=== PATIENT | male | born 1990 | race African-American/Black ===

== ENCOUNTER 2017-06-18 20:23 | Inpatient (IN) | payer OTHER ==
[~2017-06-18] VITALS: Ht 182.9 cm; Wt 79.1 kg
[2017-06-18 20:36] VITALS: Ht 182.9 cm; Wt 79.1 kg
[2017-06-18] MEDS ORDERED: SOD CHLORIDE 0.9% 1,000 ML IV ONE (21:00)
[2017-06-18 21:28] LABS: ABNORMAL IP MESSAGE 1; BASOPHIL # 0.1 10^3/ul (0.0-0.1); BASOPHILS % 0.8 % (0.0-2.0); EOSINOPHILS # 0.8 10^3/ul (0.0-0.5); EOSINOPHILS % 4.5 % (0.0-7.0); HEMATOCRIT 29.7 % (42.0-52.0); HEMOGLOBIN 10.1 g/dl (14.0-18.0); LYMPHOCYTES # 4.7 10^3/ul (0.8-2.9); LYMPHOCYTES % 26.9 % (15.0-51.0); MEAN CORPUSCULAR HEMOGLOBIN 28.4 pg (29.0-33.0); MEAN CORPUSCULAR VOLUME 83.4 fl (82.0-101.0); MEAN PLATELET VOLUME 9.2 fl (7.4-10.4); MONOCYTE # 1.8 10^3/ul (0.3-0.9); MONOCYTES % 10.5 % (0.0-11.0); NEUTROPHIL # 9.8 10^3/ul (1.6-7.5); NEUTROPHILS % 56.6 % (39.0-77.0); NUCLEATED RED BLOOD CELLS # 0.1 10^3/ul (0.0-0.0); NUCLEATED RED BLOOD CELLS% 0.8 /100WBC (0.0-0.0); PLATELET COUNT 409 10^3/UL (140-415); POSITIVE DIFF @See below; RED BLOOD COUNT 3.56 10^6/ul (4.70-6.10); RED CELL DISTRIBUTION WIDTH 21.2 % (11.5-14.5); RETICULOCYTE COUNT % 12.7 % (0.5-1.5); WHITE BLOOD COUNT 17.4 10^3/ul (4.8-10.8)
[2017-06-18] MEDS ORDERED: morphine 4 MG/ML VIAL IV STA (21:38)
[2017-06-18] MEDS ORDERED: FENTAnyl 50 MCG/ML VIAL IV ONE ×2 (22:30)
--- NOTE | 2017-06-18 23:05 | RADRPT ---
PROCEDURE: XR Chest AP portable CLINICAL INDICATION: Chest pain TECHNIQUE: An AP portable radiograph of the chest was submitted. COMPARISON: None. FINDINGS: Support Hardware: None Cardiovascular: There is moderate lobular enlargement of the cardiomediastinal silhouette and the pu lmonary vasculature appears congested. Lung Blue: The lung blue appear clear with no nodule, alveolar infiltrate, or interstitial promi nence evident. Pleural Spaces: No pneumothorax or pleural effusion is identified. Osseous Structures: The osseous structures appear intact. Soft Tissues: The soft tissues appear unremarkable. IMPRESSION: 1. Moderate globular enlargement the cardiomediastinal silhouette which can be seen in cardiomyopat hy or with pericardial effusion. 2. Pulmonary vascular congestion. 3. The lung blue and pleural spaces are clear. Physician Maribel Date Time Electronically viewed and signed by Dolly Smith Physician on 06/18/2017 23:05 /
[2017-06-19] VITALS (10 sets, daily range): BP systolic 125–148; BP diastolic 69–91; PULSE 70–92; RESP 16–20
[2017-06-19] MEDS ORDERED: ACETAMINOPHEN 325 MG TAB PO PRN (01:00)
[2017-06-19] MEDS ORDERED: ONDANSETRON 4 MG INJ IV PRN ×2 (01:00→02:00)
[2017-06-19] MEDS ORDERED: FENTAnyl 50 MCG/ML VIAL IV ONE (01:00)
--- NOTE | 2017-06-19 01:48 | ERD ---
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 He is new in town from [place] and has not been seen in any hospitals around here. Said 2 months ago was his last attack. Denies abdominal pain nausea and vomiting. Denies fever chills. ROS All systems reviewed and are negative except as per history of present illness. Allergies Allergies: Coded Allergies: No Known Allergy (Unverified , 06/18/17) PMhx/Soc Hx Miscellaneous Medical Probl: Yes (sickle cell) Hx Alcohol Use: No Hx Substance Use: No Hx Tobacco Use: No Smoking Status: Never smoker Physical Exam Vitals Vital Signs Date Time Temp Pulse Resp B/P Pulse Ox O2 Delivery O2 Flow Rate FiO2 06/18/17 22:53 78 18 145/78 97 Room Air 06/18/17 20:36 98.2 80 18 138/61 94 Physical Exam Const: [] L distress, appears uncomfortable Head: Atraumatic Eyes: Normal Conjunctiva ENT: Normal External Ears, Nose and Mouth. Neck: Full range of motion..~ No meningismus. Resp: Clear to auscultation bilaterally Cardio: Regular rate and rhythm, no murmurs Abd: Soft, non tender, non distended. Normal bowel sounds Skin: No petechiae or rashes Back: No midline or flank tenderness Ext: No cyanosis, or edema Neur: Awake and alert oriented 3, no focal deficits Psych: Very agitated. Result Diagram: 06/18/172109 Results 24 hrs Laboratory Tests Test 06/18/17 21:10 White Blood Count 17.410^3/ul Red Blood Count 3.5610^6/ul Hemoglobin 10.1g/dl Hematocrit 29.7% Mean Corpuscular Volume 83.4fl Mean Corpuscular Hemoglobin 28.4pg Mean Corpuscular Hemoglobin Concent 34.0g/dl Red Cell Distribution Width 21.2% Platelet Count 97518^3/UL Mean Platelet Volume 9.2fl Neutrophils % 56.6% Lymphocytes % 26.9% Monocytes % 10.5% Eosinophils % 4.5% Basophils % 0.8% Nucleated Red Blood Cells % 0.8/100WBC Neutrophils # 9.810^3/ul Lymphocytes # 4.710^3/ul Monocytes # 1.810^3/ul Eosinophils # 0.810^3/ul Basophils # 0.110^3/ul Nucleated Red Blood Cells # 0.110^3/ul Absolute Reticulocyte Count 0.450X10^6 Percent Reticulocyte Count 12.7% Current Medications Medications (Trade) Dose Ordered Sig/Kris Route PRN Reason Start Time Stop Time Status Last Admin Dose Admin Sodium Chloride (NS) 1,000 ml @ 1,000 mls/hr Q1H ONCE IV 06/18/17 21:00 06/18/17 21:59 DC 06/18/17 21:11 Morphine Sulfate (morphine) 4 mg ONCE STAT IV 06/18/17 21:38 06/18/17 21:40 DC 06/18/17 21:43 Fentanyl (Sublimaze) 50 mcg ONCE ONCE IV 06/18/17 22:30 06/18/17 22:31 DC 06/18/17 22:34 Fentanyl (Sublimaze) 50 mcg ONCE ONCE IV 06/18/17 22:30 06/18/17 22:31 DC 06/18/17 23:20 Procedures/MDM 26-year-old male with sickle cell pain. Does have an elevated white blood cell count no signs of aplastic crisis with an excellent reticulocyte count of 12. Does have some anemia sickle cell disease but does not have any severe anemia that would need a transfusion. He was given 2 L of normal saline 4 mg of morphine 200 mg of fentanyl and 4 different doses. Patient was a very difficult patient pulled out his IV twice was swearing and threatening the staff. Security was called on the patient. Is going to be admitted to the medical surgical floor for further management by Dr. Ford. Chest x-ray interpretation: Engorgement of the pulmonary vasculature, I see no other acute process, no pulmonary edema, pneumothorax, no infiltrates, no fractures. Departure Diagnosis: Primary Impression: Sickle cell anemia with pain Additional Impression: Leukocytosis Condition: Stable YELITZA TOSCANO DO Jun 19, 2017 01:48
[2017-06-19] MEDS ORDERED: NACL 0.9% 3 ML SYG IV SCH (02:00)
[2017-06-19] MEDS ORDERED: morphine 4 MG/ML VIAL IV PRN (02:00)
[2017-06-19] MEDS ORDERED: morphine 2 MG INJ IV PRN (02:00)
[2017-06-19 02:49] LABS: ALANINE AMINOTRANSFERASE 36 IU/L (13-69); ALBUMIN 4.4 g/dl (3.3-4.9); ALBUMIN/GLOBULIN RATIO 1.46; ALKALINE PHOSPHATASE 123 IU/L (42-121); ANION GAP 16 (8-16); ASPARTATE AMINO TRANSFERASE 34 IU/L (15-46); BLOOD UREA NITROGEN 12 mg/dl (7-20); CALCIUM 9.4 mg/dl (8.4-10.2); CARBON DIOXIDE 25 mmol/L (21-31); CHLORIDE 108 mmol/L (97-110); CREATINE KINASE 211 IU/L (23-200); CREATININE 0.75 mg/dl (0.61-1.24); GLUCOSE 109 mg/dl (70-220); MAGNESIUM 1.8 mg/dl (1.7-2.5); POTASSIUM 4.1 mmol/L (3.5-5.1); SODIUM 145 mmol/L (135-144); TOTAL PROTEIN 7.4 g/dl (6.1-8.1)
[2017-06-19 03:03] LABS: CK-MB 1.03 ng/ml (0.0-2.4); TROPONIN-I < 0.012 ng/ml (0.00-0.12)
[2017-06-19 03:10] LABS: BILIRUBIN,INDIRECT 4.5 mg/dl (0-1.1); BILIRUBIN,TOTAL 4.5 mg/dl (0.2-1.3); LACTATE DEHYDROGENASE 669 IU/L (313-618)
[2017-06-19] MEDS ORDERED: HYDROmorphONE 0.5 MG/0.5 ML SYG IV STA (03:46)
[2017-06-19] MEDS ORDERED: HYDROXYUREA 500 MG CAP PO SCH (04:30)
[2017-06-19] MEDS ORDERED: IOHEXOL 100 ML ONE (05:06)
[2017-06-19] MEDS ORDERED: SOD CHLORIDE 0.9% 100 ML ONE (05:06)
--- NOTE | 2017-06-19 05:30 | RADRPT ---
PROCEDURE: CTA Chest with contrast. CLINICAL INDICATION: Chest pain. Suspected pulmonary embolus. Sickle cell disease. TECHNIQUE: Thin section spiral CT images were obtained through the vasculature of the chest during administration of 85 ccs of Omnipaque 350 contrast material. Coronal and sagittal reformatted imag es were obtained from the axial source images. 3D maximum intensity reconstructed were performed. I mages were reviewed on a high-resolution PACS workstation. The total exam CTDI was 7.98 mGy and the total exam DLP was 358.52 mGy-cm. One or more of the following dose reduction techniques were used: automated exposure control, adjustment of the mA and/or kV according to patient size, or use of iter ative reconstruction technique. DICOM images are available. COMPARISON: Chest x-ray from the same day FINDINGS: Lungs: Slight dependent atalectasis of the lungs is seen.. Nonspecific ground-glass opacity of the l ungs is seen with a lower lobe predominance. Scattered areas of peripheral and dependent atelectasis but no definite focal infiltrate or definite focal infarct.. No pleural or pericardial effusion is seen. Mediastinum: No mass or adenopathy is seen. The heart is markedly enlarged. The proximal ascending aorta measures 4 cm in diameter.. No definite pulmonary embolus or aortic dissection.. Musculoskeletal: Slightly heterogeneous marrow with perhaps minimal early endplate depressions of th e spine. Bilateral humeral head AVN.. Upper abdomen: The spleen is poorly seen and may be tiny in size, perhaps due to auto infarction. Th e left kidney is ptotic. Low attenuation laterally could be due to renal infarct of the left kidney is incompletely seen on the study of the chest.. IMPRESSION: No definite pulmonary embolus or aortic dissection. Marked cardiomegaly and ectatic ascending aorta. Nonspecific ground-glass opacity of the lungs. Poorly visualized and likely a very small spleen, perhaps due to auto infarction. Possible left lisandra l infarct versus unusual appearance due to ptosis. Bilateral humeral head AVN and probable early sic kle cell changes of the spine. RPTAT: HLBE Physician Abbey Date Time Electronically viewed and signed by Physician Abbey on 06/19/2017 05:30 LE/
[2017-06-19] MEDS: SOD CHLORIDE 0.9% 1,000 ML IV SCH ×3 (05:50→12:11)
[2017-06-19] MEDS: HYDROmorphONE 1 MG/ML SYG IV PRN ×2 (06:36→10:09)
--- NOTE | 2017-06-19 07:09 | HP ---
Date/Time of Note Date/Time of Note DATE: 06/19/17 TIME: 06:58 Assessment/Plan VTE Prophylaxis VTE Prophylaxis Intervention: LMWH Lines/Catheters IV [facility]ter [facility]from [facility]): Saline Lock Assessment/Plan Chief Complaint/Hosp Course This is a 26-year-old male being admitted to the telemetry floor for: #1 chest pain: ACS versus acute chest syndrome versus sickle cell crisis: At the current time I do not feel he is in acute chest syndrome as patient is afebrile and he does not meet criteria for acute chest syndrome. His x-ray does appear to show vascular congestion and an enlarged heart however on physical exam I do not hear any wheezing. He does not look like he is overloaded at this time. Nonetheless I would like to further evaluate his heart I will order a CTA of the chest as well as an echocardiogram. We will currently monitor him in telemetry. Trend cardiac troponins. He did receive morphine in the ED but it did not give him any pain relief. Will provide him Dilaudid at this time. #2 sickle cell crisis: At the current time his hemoglobin is 10 patient states that his baseline hemoglobin is around 9-10. We will continue to monitor hemoglobin. We will provide him IV fluid hydration with normal saline while monitoring his respiratory status as patient apparently was shown to have vascular congestion on his x-ray though on exam I do not hear any wheezing on exam and he is not in respiratory distress. We will also provide him Dilaudid IV 1 mg every 4 hours. Zofran as needed for nausea. Will also consider initiating hydroxyurea. Patient does not have a primary care doctor, I will defer consultation to hematology to the day team. Patient does have an elevated white blood cell count which likely could be reactive I am unsure of his splenic status at this time, I will give him initial dose of Zosyn while obtaining blood cultures beforehand though the patient is currently afebrile. #3 DVT and GI prophylaxis: Lovenox, no GI prophylaxis indicated Further treatment strategy will be implemented as per the clinical course Problems: HPI/ROS Admit Date/Time Admit Date/Time Jun 19, 2017 at 00:42 Hx of Present Illness Chief complaint: Left leg pain Is a 26-year-old male who comes in today complaining of left leg pain as well as chest pain he states is related to sickle cell disease. At the current time he denies any shortness of breath or wheezing. He denies any fevers. He states that his episode started approximately a 1 PM on 06/18. He reports that he is originally from [place] and he moved to the [facility] approximately a year and a half ago. He states the last time he was treated for sickle cell crisis with that hospital in [place]. He denies any lower extremity edema. Allergies: NKDA Medications: None ROS Const: As per HPI Eyes : No pain discharge or redness or change in visual acuity ENT: No pain, sore throat, congestion, congestion, dysphagia or discharge Respiratory: As per HPI Cardiovascular: As per HPI GI : no change in appetite, abdominal pain, nausea, vomiting, diarrhea, constipation, or change in the color his stool Genitourinary: No dysuria, hematuria, flank pain , discharge or CVA tenderness Musculoskeletal: As per HPI Skin: No rash, bruising or hives Neuro: No headache, dizziness, syncope, seizure, focal weakness Endocrine: No polyuria, polydipsia, temperature intolerance Psych: No hallucination, depression, anxiety or suicidal ideation PMH/Family/Social Past Medical History Sickle cell disease Past Surgical History Past Surgical Hx: no surgical history Family History Significant Family History: no pertinent family hx Social History Alcohol Use: none Smoking Status: Current some day smoker Drug Use: none Exam/Review of Systems Vital Signs Vitals Vital Signs Date Time Temp Pulse Resp B/P Pulse Ox O2 Delivery O2 Flow Rate FiO2 06/18/17 22:53 78 18 145/78 97 Room Air 06/18/17 20:36 98.2 Exam Exam General: Patient is lying in bed in moderate distress from his pain, he states his pain is worse in his left leg. HEENT: Atraumatic, normocephalic. The pupils are equal, round and reactive. Extraocular motor are intact Neck: Supple with full range of motion. No rigidity or meningismus Chest: Nontender Lungs: Clear to auscultation bilaterally no crackles rales or wheezing Heart: Normal S1-S2, Regular rhythm and rate. No murmur, S3, or S4 Abdomen: Soft , nontender, nondistended , bowel sounds are present. No guarding no rebound tenderness , No masses or organomegaly. No costovertebral temporal angle mass Extremities: Normal to inspection, no edema no cyanosis Neurologic: Normal mental status, speech normal, cranial nerves II through XII are intact, motor and sensory are intact, no focal weakness Additional Comments PROCEDURE: XR Chest AP portable CLINICAL INDICATION: Chest pain TECHNIQUE: An AP portable radiograph of the chest was submitted. COMPARISON: None. FINDINGS: Support Hardware: None Cardiovascular: There is moderate lobular enlargement of the cardiomediastinal silhouette and the pulmonary vasculature appears congested. Lung Hill: The lung hill appear clear with no nodule, alveolar infiltrate, or interstitial prominence evident. Pleural Spaces: No pneumothorax or pleural effusion is identified. Osseous Structures: The osseous structures appear intact. Soft Tissues: The soft tissues appear unremarkable. IMPRESSION: 1. Moderate globular enlargement the cardiomediastinal silhouette which can be seen in cardiomyopathy or with pericardial effusion. 2. Pulmonary vascular congestion. 3. The lung hill and pleural spaces are clear. Physician Maribel Date Time Electronically viewed and signed by Dolly Smith Physician on 06/18/2017 23:05 RH/ CC: YELITZA TOSCANO DO Labs Result Diagram: 06/18/170 06/19/17 0221 Medications Medications Current Medications Ondansetron HCl (Zofran Inj) 4 mg Q6H PRN IV NAUSEA AND/OR VOMITING; Start at 02:00 Acetaminophen (Tylenol Tab) 650 mg Q6H PRN PO PAIN LEVEL 1-3 OR FEVER; Start 06/19/17 at 02:00 Enoxaparin Sodium (Lovenox) 40 mg DAILY SC ; Start 06/19/17 at 09:00 Hydromorphone HCl 1 mg 1 mg Q4H PRN IV PAIN Last administered on 06/19/17 06: 36; Admin Dose 1 MG; Start 06/19/17 at 05:00 Sodium Chloride (NS) 1,000 ml @ 100 mls/hr Q10H IV Last administered on 05:50; Admin Dose 100 MLS/HR; Start 06/19/17 at 05:00 NICOLETTE GREEN Jun 19, 2017 07:09
[2017-06-19] MEDS ORDERED: PIPER-TAZO 3.375 GM IV (PMX) 50 ML IV ONE (07:30)
[2017-06-19] MEDS: ENOXAPARIN 40 MG/0.4 ML SYG SC SCH ×2 (09:00→09:35)
[2017-06-19] MEDS: HYDROmorphONE 2 MG TAB PO PRN ×2 (13:25→21:09)
[2017-06-19 14:58] LABS: ABNORMAL IP MESSAGE 1; BASOPHIL # 0.1 10^3/ul (0.0-0.1); BASOPHILS % 0.5 % (0.0-2.0); EOSINOPHILS # 0.4 10^3/ul (0.0-0.5); EOSINOPHILS % 2.4 % (0.0-7.0); HEMATOCRIT 29.1 % (42.0-52.0); HEMOGLOBIN 10.2 g/dl (14.0-18.0); LYMPHOCYTES # 2.3 10^3/ul (0.8-2.9); LYMPHOCYTES % 14.1 % (15.0-51.0); MEAN CORPUSCULAR HGB CONC 35.1 g/dl (32.0-37.0); MEAN CORPUSCULAR VOLUME 82.7 fl (82.0-101.0); MEAN PLATELET VOLUME 9.9 fl (7.4-10.4); MONOCYTE # 2.3 10^3/ul (0.3-0.9); MONOCYTES % 14.3 % (0.0-11.0); NEUTROPHIL # 11.2 10^3/ul (1.6-7.5); NEUTROPHILS % 68.2 % (39.0-77.0); NUCLEATED RED BLOOD CELLS # 0.1 10^3/ul (0.0-0.0); NUCLEATED RED BLOOD CELLS% 0.9 /100WBC (0.0-0.0); PLATELET COUNT 429 10^3/UL (140-415); POSITIVE DIFF @See below; RED BLOOD COUNT 3.52 10^6/ul (4.70-6.10); RED CELL DISTRIBUTION WIDTH 21.7 % (11.5-14.5); WHITE BLOOD COUNT 16.4 10^3/ul (4.8-10.8)
[2017-06-19 15:16] LABS: CREATINE KINASE 198 IU/L (23-200)
[2017-06-19 15:17] LABS: CHOL/HDL RATIO 1.6 RATIO
[2017-06-19 15:33] LABS: CK-MB 0.67 ng/ml (0.0-2.4); TROPONIN-I < 0.012 ng/ml (0.00-0.12)
--- NOTE | 2017-06-19 15:44 | RADRPT ---
PROCEDURE: US Lower extremity Venous. CLINICAL INDICATION: Bilateral leg swelling TECHNIQUE: Multiple sonographic images of the bilateral lower extremity deep venous system was obt ained utilizing diaz scale, color-flow, compressive sonography and doppler imaging with augmentation . COMPARISON: None. FINDINGS: There is normal compressibility, phasicity and Doppler flow within the bilateral common femoral, fem oral and popliteal veins. Visualized portions of the calf veins are patent. IMPRESSION: No sonographic evidence for deep venous thrombosis. RPTAT:AAJJ Keturah Guzman Physician Date Time Electronically viewed and signed by Keturah Guzman Physician on 06/19/2017 15:44 /
[2017-06-19] MEDS ORDERED: HYDROmorphONE 2 MG TAB PO ONE (16:30)
[2017-06-19] MEDS ORDERED: HYDROmorphONE 2 MG/ML SYG IV STA (17:39)
--- NOTE | 2017-06-19 19:51 | PN ---
Date/Time of Note Date/Time of Note DATE: 06/19/17 TIME: 19:48 Assessment/Plan VTE Prophylaxis VTE Prophylaxis Intervention: LMWH Lines/Catheters IV Catheter Type (from Nrsg): Saline Lock Assessment/Plan Chief Complaint/Hosp Course 26 yo male w sickle cell disease presenting with cough and leg pain - Will perfomr duplex US to exclude DVT given complaint and SCD - Continue symptomatic pain control - Would stop empiric abx tomorrow if no evidence of infection given low suspicion - IV fluids - Needs to establish care with a director revenue for SCD - Dr Rivera to see patient tomorrow, he has been notifed to assist with opiates Problems: Subjective 24 Hr Interval Summary Free Text/Dictation Patient complained of pain in his L calf this AM to me. Was very calm at that time. But quite a distant affect, silghtly hostile but calm. When I mentioned pain meds, he became very bright and friendly to me Continued on PO pain meds only. Then cheng beltre called for extreme agitation, very angry demanding IV pain meds. 1 mg IV dilaudid was given so he woudl calm down Exam/Review of Systems Vital Signs Vitals Vital Signs Date Time Temp Pulse Resp B/P Pulse Ox O2 Delivery O2 Flow Rate FiO2 06/19/17 17:43 143/82 06/19/17 16:16 92 06/19/17 15:53 Room Air 06/19/17 11:48 98.4 20 98 Results Result Diagram: 06/19/17 1415 06/19/17 0221 Results 24 hrs Laboratory Tests Test 06/18/17 21:10 06/19/17 02:21 06/19/17 14:15 White Blood Count 17.4 H 16.4 H Red Blood Count 3.56 L 3.52 L Hemoglobin 10.1 L 10.2 L Hematocrit 29.7 L 29.1 L Mean Corpuscular Volume 83.4 82.7 Mean Corpuscular Hemoglobin 28.4 L 29.0 Mean Corpuscular Hemoglobin Concent 34.0 35.1 Red Cell Distribution Width 21.2 H 21.7 H Platelet Count 409 429 H Mean Platelet Volume 9.2 9.9 Neutrophils % 56.6 68.2 Lymphocytes % 26.9 14.1 L Monocytes % 10.5 14.3 H Eosinophils % 4.5 2.4 Basophils % 0.8 0.5 Nucleated Red Blood Cells % 0.8 H 0.9 H Neutrophils # 9.8 H 11.2 H Lymphocytes # 4.7 H 2.3 Monocytes # 1.8 H 2.3 H Eosinophils # 0.8 H 0.4 Basophils # 0.1 0.1 Nucleated Red Blood Cells # 0.1 H 0.1 H Absolute Reticulocyte Count 0.450 H Percent Reticulocyte Count 12.7 H Sodium Level 145 H Potassium Level 4.1 Chloride Level 108 Carbon Dioxide Level 25 Anion Gap 16 Blood Urea Nitrogen 12 Creatinine 0.75 Glucose Level 109 Calcium Level 9.4 Magnesium Level 1.8 Total Bilirubin 4.5 H Direct Bilirubin 0.00 Indirect Bilirubin 4.5 H Aspartate Amino Transf (AST/SGOT) 34 Alanine Aminotransferase (ALT/SGPT) 36 Alkaline Phosphatase 123 H Lactate Dehydrogenase 669 H Creatine Kinase 211 H 198 Creatine Kinase Index 0.5 0.3 Creatinine Kinase MB (Mass) 1.03 0.67 Troponin I < 0.012 < 0.012 B-Type Natriuretic Peptide 96 Total Protein 7.4 Albumin 4.4 Globulin 3.00 Albumin/Globulin Ratio 1.46 Sickle Cells POSITIVE Hemoglobin A1c 4.3 Triglycerides Level 52 Cholesterol Level 107 LDL Cholesterol, Calculated 33 HDL Cholesterol 64 H Cholesterol/HDL Ratio 1.6 Medications Medications Current Medications Ondansetron HCl (Zofran Inj) 4 mg Q6H PRN IV NAUSEA AND/OR VOMITING; Start at 02:00 Acetaminophen (Tylenol Tab) 650 mg Q6H PRN PO PAIN LEVEL 1-3 OR FEVER; Start 06/19/17 at 02:00 Enoxaparin Sodium 40 mg 40 mg DAILY SC ; Start 06/19/17 at 09:00 Sodium Chloride (NS) 1,000 ml @ 100 mls/hr Q10H IV Last administered on 05:50; Admin Dose 100 MLS/HR; Start 06/19/17 at 05:00 Hydromorphone HCl (Dilaudid) 2 mg Q4H PRN PO PAIN Last administered on 13:25; Admin Dose 2 MG; Start 06/19/17 at 13:30 MICKY WISE MD Jun 19, 2017 19:51
[2017-06-20] VITALS (10 sets, daily range): BP systolic 123–139; BP diastolic 66–76; PULSE 70–84; RESP 19–20
[2017-06-20] MEDS: ACETAMINOPHEN 325 MG TAB PO PRN (00:09)
[2017-06-20] MEDS: SOD CHLORIDE 0.9% 1,000 ML IV SCH ×3 (00:14→21:51)
[2017-06-20] MEDS: HYDROmorphONE 1 MG/ML SYG IV PRN ×3 (01:14→09:02)
[2017-06-20 07:18] LABS: ALBUMIN/GLOBULIN RATIO 1.14; BILIRUBIN,INDIRECT 5.6 mg/dl (0-1.1); BILIRUBIN,TOTAL 5.6 mg/dl (0.2-1.3); CALCIUM 9.2 mg/dl (8.4-10.2); CREATININE 0.78 mg/dl (0.61-1.24); MAGNESIUM 1.7 mg/dl (1.7-2.5); TOTAL PROTEIN 7.5 g/dl (6.1-8.1)
[2017-06-20 07:39] LABS: THYROID STIMULATING HORMONE 3.3 MIU/L (0.465-4.680)
[2017-06-20] MEDS: ENOXAPARIN 40 MG/0.4 ML SYG SC SCH (09:10)
[2017-06-20] MEDS ORDERED: HYDROmorphONE 2 MG/ML SYG ONE (12:09)
[2017-06-20] MEDS: HYDROmorphONE 2 MG/ML SYG IV PRN ×4 (12:21→21:51)
--- NOTE | 2017-06-20 16:32 | PN ---
Date/Time of Note Date/Time of Note DATE: 06/20/17 TIME: 16:30 Assessment/Plan VTE Prophylaxis VTE Prophylaxis Intervention: LMWH Lines/Catheters IV Catheter Type (from Nrsg): Peripheral IV Urinary Cath still in place: No Assessment/Plan Chief Complaint/Hosp Course 1. Sickle cell crisis IV fluids Pain control with Dilaudid, dose and frequency increased Pain specialist to evaluate Needs to establish care with a loading unit operator crimping for SCD Prophylaxis: Lovenox Problems: Subjective 24 Hr Interval Summary Musculoskeletal: bone/joint pain Exam/Review of Systems Vital Signs Vitals Vital Signs Date Time Temp Pulse Resp B/P Pulse Ox O2 Delivery O2 Flow Rate FiO2 06/20/17 16:15 84 06/20/17 15:51 98.0 19 123/66 95 06/19/17 15:53 Room Air Intake and Output 06/19/17 06/19/17 06/20/17 15:00 23:00 07:00 Intake Total 500 ml 1040 ml Balance 500 ml 1040 ml Exam Constitutional: alert, oriented Respiratory: clear to auscultation Cardiovascular: regular rate and rhythm Gastrointestinal: soft, No distended Musculoskeletal: nl extremities to inspection Results Result Diagram: 06/19/17 1415 06/20/17 0601 Results 24 hrs Laboratory Tests Test 06/20/17 06:01 Sodium Level 144 Potassium Level 4.0 Chloride Level 106 Carbon Dioxide Level 29 Anion Gap 13 Blood Urea Nitrogen 14 Creatinine 0.78 Glucose Level 121 Calcium Level 9.2 Magnesium Level 1.7 Total Bilirubin 5.6 H Direct Bilirubin 0.00 Indirect Bilirubin 5.6 H Aspartate Amino Transf (AST/SGOT) 30 Alanine Aminotransferase (ALT/SGPT) 35 Alkaline Phosphatase 106 Total Protein 7.5 Albumin 4.0 Globulin 3.50 H Albumin/Globulin Ratio 1.14 Thyroid Stimulating Hormone (TSH) 3.300 Medications Medications Current Medications Ondansetron HCl (Zofran Inj) 4 mg Q6H PRN IV NAUSEA AND/OR VOMITING; Start at 02:00 Acetaminophen (Tylenol Tab) 650 mg Q6H PRN PO PAIN LEVEL 1-3 OR FEVER Last administered on 06/20/17 00:09; Admin Dose 650 MG; Start 06/19/17 at 02:00 Enoxaparin Sodium 40 mg 40 mg DAILY SC Last administered on 06/20/17 09:10; Admin Dose 40 MG; Start 06/19/17 at 09:00 Sodium Chloride (NS) 1,000 ml @ 100 mls/hr Q10H IV Last administered on 00:14; Admin Dose 100 MLS/HR; Start 06/19/17 at 05:00 Hydromorphone HCl (Dilaudid) 2 mg Q3H PRN IV PAIN Last administered on 15:29; Admin Dose 2 MG; Start 06/20/17 at 15:00 DELLA MEDINA Jun 20, 2017 16:32
[2017-06-21] VITALS (9 sets, daily range): BP systolic 124–140; BP diastolic 57–73; PULSE 78–87; RESP 18–20
[2017-06-21] MEDS: HYDROmorphONE 2 MG/ML SYG IV PRN ×9 (00:31→23:59)
[2017-06-21] MEDS ORDERED: LORAZEPAM 2 MG INJ IV ONE (01:00)
[2017-06-21] MEDS ORDERED: DIPHENHYDRAMINE 25 MG CAP PO ONE (01:00)
[2017-06-21] MEDS: SOD CHLORIDE 0.9% 1,000 ML IV SCH ×3 (07:00→18:39)
[2017-06-21 09:48] LABS: ABNORMAL IP MESSAGE 1; BASOPHIL # 0.1 10^3/ul (0.0-0.1); BASOPHILS % 0.3 % (0.0-2.0); EOSINOPHILS # 0.4 10^3/ul (0.0-0.5); EOSINOPHILS % 2.2 % (0.0-7.0); HEMATOCRIT 26.2 % (42.0-52.0); HEMOGLOBIN 9.1 g/dl (14.0-18.0); LYMPHOCYTES # 1.7 10^3/ul (0.8-2.9); LYMPHOCYTES % 9.7 % (15.0-51.0); MEAN CORPUSCULAR HEMOGLOBIN 28.5 pg (29.0-33.0); MEAN CORPUSCULAR HGB CONC 34.7 g/dl (32.0-37.0); MEAN CORPUSCULAR VOLUME 82.1 fl (82.0-101.0); MEAN PLATELET VOLUME 9.2 fl (7.4-10.4); MONOCYTE # 2.6 10^3/ul (0.3-0.9); MONOCYTES % 15.1 % (0.0-11.0); NEUTROPHIL # 12.7 10^3/ul (1.6-7.5); NEUTROPHILS % 72.3 % (39.0-77.0); NUCLEATED RED BLOOD CELLS # 0.1 10^3/ul (0.0-0.0); NUCLEATED RED BLOOD CELLS% 0.3 /100WBC (0.0-0.0); PLATELET COUNT 425 10^3/UL (140-415); POSITIVE DIFF @See below; RED BLOOD COUNT 3.19 10^6/ul (4.70-6.10); RED CELL DISTRIBUTION WIDTH 20.3 % (11.5-14.5); WHITE BLOOD COUNT 17.5 10^3/ul (4.8-10.8)
[2017-06-21 10:15] LABS: CALCIUM 9.9 mg/dl (8.4-10.2); CREATININE 0.66 mg/dl (0.61-1.24); POTASSIUM 4.3 mmol/L (3.5-5.1)
[2017-06-21] MEDS: ENOXAPARIN 40 MG/0.4 ML SYG SC SCH (10:30)
--- NOTE | 2017-06-21 17:53 | PN ---
Date/Time of Note Date/Time of Note DATE: 06/21/17 TIME: 17:53 Assessment/Plan VTE Prophylaxis VTE Prophylaxis Intervention: LMWH Lines/Catheters IV Catheter Type (from Nrsg): Peripheral IV Urinary Cath still in place: No Assessment/Plan Chief Complaint/Hosp Course 1. Sickle cell crisis IV fluids Pain control with Dilaudid, dose and frequency increased Pain specialist to evaluate Needs to establish care with a windows server administrator for SCD Prophylaxis: Lovenox Problems: Subjective 24 Hr Interval Summary Constitutional: no complaints Exam/Review of Systems Vital Signs Vitals Vital Signs Date Time Temp Pulse Resp B/P Pulse Ox O2 Delivery O2 Flow Rate FiO2 06/21/17 17:26 99.4 79 19 125/57 98 06/19/17 15:53 Room Air Intake and Output 06/20/17 06/20/17 06/21/17 14:59 22:59 06:59 Intake Total 800 ml Balance 800 ml Exam Constitutional: alert Respiratory: clear to auscultation Cardiovascular: regular rate and rhythm Gastrointestinal: soft, No distended Musculoskeletal: nl extremities to inspection Results Result Diagram: 06/21/1720 06/21/17 0920 Results 24 hrs Laboratory Tests Test 06/21/17 09:20 White Blood Count 17.5 H Red Blood Count 3.19 L Hemoglobin 9.1 L Hematocrit 26.2 L Mean Corpuscular Volume 82.1 Mean Corpuscular Hemoglobin 28.5 L Mean Corpuscular Hemoglobin Concent 34.7 Red Cell Distribution Width 20.3 H Platelet Count 425 H Mean Platelet Volume 9.2 Neutrophils % 72.3 Lymphocytes % 9.7 L Monocytes % 15.1 H Eosinophils % 2.2 Basophils % 0.3 Nucleated Red Blood Cells % 0.3 H Neutrophils # 12.7 H Lymphocytes # 1.7 Monocytes # 2.6 H Eosinophils # 0.4 Basophils # 0.1 Nucleated Red Blood Cells # 0.1 H Sodium Level 142 Potassium Level 4.3 Chloride Level 105 Carbon Dioxide Level 28 Anion Gap 13 Blood Urea Nitrogen 12 Creatinine 0.66 Glucose Level 94 Calcium Level 9.9 Troponin I < 0.012 Medications Medications Current Medications Ondansetron HCl (Zofran Inj) 4 mg Q6H PRN IV NAUSEA AND/OR VOMITING; Start at 02:00 Acetaminophen (Tylenol Tab) 650 mg Q6H PRN PO PAIN LEVEL 1-3 OR FEVER Last administered on 06/20/17 00:09; Admin Dose 650 MG; Start 06/19/17 at 02:00 Enoxaparin Sodium 40 mg 40 mg DAILY SC Last administered on 06/21/17 10:30; Admin Dose 40 MG; Start 06/19/17 at 09:00 Sodium Chloride (NS) 1,000 ml @ 100 mls/hr Q10H IV Last administered on 21:51; Admin Dose 100 MLS/HR; Start 06/19/17 at 05:00 Hydromorphone HCl (Dilaudid) 2 mg Q3H PRN IV PAIN Last administered on 15:11; Admin Dose 2 MG; Start 06/20/17 at 15:00 DELLA MEDINA Jun 21, 2017 17:53
[2017-06-21] MEDS: ACETAMINOPHEN 325 MG TAB PO PRN (18:21)
[2017-06-22] MEDS: HYDROmorphONE 2 MG/ML SYG IV PRN ×8 (00:14→21:26)
[2017-06-22 02:00] VITALS: BP 119/57; RESP 18
[2017-06-22] MEDS: SOD CHLORIDE 0.9% 1,000 ML IV SCH ×3 (03:00→22:22)
[2017-06-22 07:35] VITALS: BP 124/66; RESP 16
[2017-06-22] MEDS: ENOXAPARIN 40 MG/0.4 ML SYG SC SCH (09:46)
[2017-06-22 13:54] LABS: ABNORMAL IP MESSAGE 1; BASOPHILS % 0.2 % (0.0-2.0); EOSINOPHILS # 0.4 10^3/ul (0.0-0.5); EOSINOPHILS % 2.3 % (0.0-7.0); HEMATOCRIT 24.5 % (42.0-52.0); HEMOGLOBIN 8.3 g/dl (14.0-18.0); LYMPHOCYTES # 2.1 10^3/ul (0.8-2.9); LYMPHOCYTES % 12.4 % (15.0-51.0); MEAN CORPUSCULAR HEMOGLOBIN 27.8 pg (29.0-33.0); MEAN CORPUSCULAR HGB CONC 33.9 g/dl (32.0-37.0); MEAN CORPUSCULAR VOLUME 81.9 fl (82.0-101.0); MEAN PLATELET VOLUME 9.4 fl (7.4-10.4); MONOCYTE # 2.4 10^3/ul (0.3-0.9); MONOCYTES % 14.8 % (0.0-11.0); NEUTROPHIL # 11.6 10^3/ul (1.6-7.5); NEUTROPHILS % 69.9 % (39.0-77.0); NUCLEATED RED BLOOD CELLS # 0.1 10^3/ul (0.0-0.0); NUCLEATED RED BLOOD CELLS% 0.3 /100WBC (0.0-0.0); PLATELET COUNT 448 10^3/UL (140-415); POSITIVE DIFF @See below; RED BLOOD COUNT 2.99 10^6/ul (4.70-6.10); RED CELL DISTRIBUTION WIDTH 20.5 % (11.5-14.5); WHITE BLOOD COUNT 16.5 10^3/ul (4.8-10.8)
[2017-06-22 14:12] LABS: CALCIUM 9.3 mg/dl (8.4-10.2); CREATININE 0.75 mg/dl (0.61-1.24); MAGNESIUM 1.8 mg/dl (1.7-2.5); PHOSPHORUS 4.2 mg/dl (2.5-4.9)
[2017-06-22 14:42] VITALS: BP 111/54; RESP 16
--- NOTE | 2017-06-22 14:44 | PN ---
Date/Time of Note Date/Time of Note DATE: 06/22/17 TIME: 14:44 Assessment/Plan VTE Prophylaxis VTE Prophylaxis Intervention: LMWH Lines/Catheters IV Catheter Type (from Nrsg): Peripheral IV Urinary Cath still in place: No Assessment/Plan Chief Complaint/Hosp Course 1. Sickle cell crisis IV fluids Pain control with Dilaudid, dose and frequency increased Pain specialist to evaluate Needs to establish care with a third shift lieutenant for SCD Prophylaxis: Lovenox Discharge planning: Anticipate DC home tomorrow Problems: Subjective 24 Hr Interval Summary Cardiovascular: chest pain Exam/Review of Systems Vital Signs Vitals Vital Signs Date Time Temp Pulse Resp B/P Pulse Ox O2 Delivery O2 Flow Rate FiO2 06/22/17 14:42 99.2 83 16 111/54 96 06/19/17 15:53 Room Air Intake and Output 06/21/17 06/21/17 06/22/17 15:00 23:00 07:00 Intake Total 800 ml 2440 ml Output Total 800 ml Balance 800 ml 1640 ml Exam Constitutional: alert, oriented Respiratory: clear to auscultation Cardiovascular: regular rate and rhythm Gastrointestinal: soft, No distended Musculoskeletal: nl extremities to inspection Results Result Diagram: 06/22/17 1342 06/22/17 1342 Results 24 hrs Laboratory Tests Test 06/22/17 13:42 White Blood Count 16.5 H Red Blood Count 2.99 L Hemoglobin 8.3 L Hematocrit 24.5 L Mean Corpuscular Volume 81.9 L Mean Corpuscular Hemoglobin 27.8 L Mean Corpuscular Hemoglobin Concent 33.9 Red Cell Distribution Width 20.5 H Platelet Count 448 H Mean Platelet Volume 9.4 Neutrophils % 69.9 Lymphocytes % 12.4 L Monocytes % 14.8 H Eosinophils % 2.3 Basophils % 0.2 Nucleated Red Blood Cells % 0.3 H Neutrophils # 11.6 H Lymphocytes # 2.1 Monocytes # 2.4 H Eosinophils # 0.4 Basophils # 0.0 Nucleated Red Blood Cells # 0.1 H Sodium Level 140 Potassium Level 4.0 Chloride Level 102 Carbon Dioxide Level 29 Anion Gap 13 Blood Urea Nitrogen 13 Creatinine 0.75 Glucose Level 102 Calcium Level 9.3 Phosphorus Level 4.2 Magnesium Level 1.8 Medications Medications Current Medications Ondansetron HCl (Zofran Inj) 4 mg Q6H PRN IV NAUSEA AND/OR VOMITING; Start at 02:00 Acetaminophen (Tylenol Tab) 650 mg Q6H PRN PO PAIN LEVEL 1-3 OR FEVER Last administered on 06/21/17 18:21; Admin Dose 650 MG; Start 06/19/17 at 02:00 Enoxaparin Sodium 40 mg 40 mg DAILY SC Last administered on 06/22/17 09:46; Admin Dose 40 MG; Start 06/19/17 at 09:00 Sodium Chloride (NS) 1,000 ml @ 100 mls/hr Q10H IV Last administered on 06:30; Admin Dose 100 MLS/HR; Start 06/19/17 at 05:00 Hydromorphone HCl (Dilaudid) 2 mg Q3H PRN IV PAIN Last administered on 12:34; Admin Dose 2 MG; Start 06/20/17 at 15:00 DELLA MEDINA Jun 22, 2017 14:44
[2017-06-23] MEDS: HYDROmorphONE 2 MG/ML SYG IV PRN ×8 (00:32→21:31)
[2017-06-23] MEDS: SOD CHLORIDE 0.9% 1,000 ML IV SCH ×3 (00:38→18:38)
[2017-06-23 07:52] VITALS: BP 112/62; RESP 18
[2017-06-23] MEDS: ENOXAPARIN 40 MG/0.4 ML SYG SC SCH (09:56)
--- NOTE | 2017-06-23 11:23 | PN ---
Date/Time of Note Date/Time of Note DATE: 06/23/17 TIME: 11:22 Assessment/Plan VTE Prophylaxis VTE Prophylaxis Intervention: LMWH Lines/Catheters IV Catheter Type (from Nrsg): Peripheral IV Urinary Cath still in place: No Assessment/Plan Chief Complaint/Hosp Course 1. Sickle cell crisis IV fluids Pain control with Dilaudid, dose and frequency increased Pain specialist to evaluate Needs to establish care with a thrasher feeder for SCD Prophylaxis: Lovenox Problems: Subjective 24 Hr Interval Summary Cardiovascular: chest pain Exam/Review of Systems Vital Signs Vitals Vital Signs Date Time Temp Pulse Resp B/P Pulse Ox O2 Delivery O2 Flow Rate FiO2 06/23/17 07:52 98.2 78 18 112/62 96 06/19/17 15:53 Room Air Intake and Output 06/22/17 06/22/17 06/23/17 15:00 23:00 07:00 Intake Total 1720 ml 1750 ml Balance 1720 ml 1750 ml Exam Constitutional: alert, oriented Respiratory: clear to auscultation Cardiovascular: regular rate and rhythm Gastrointestinal: soft, No distended Musculoskeletal: nl extremities to inspection Results Result Diagram: 06/22/17 1342 06/22/17 1342 Results 24 hrs Laboratory Tests Test 06/22/17 13:42 White Blood Count 16.5 H Red Blood Count 2.99 L Hemoglobin 8.3 L Hematocrit 24.5 L Mean Corpuscular Volume 81.9 L Mean Corpuscular Hemoglobin 27.8 L Mean Corpuscular Hemoglobin Concent 33.9 Red Cell Distribution Width 20.5 H Platelet Count 448 H Mean Platelet Volume 9.4 Neutrophils % 69.9 Lymphocytes % 12.4 L Monocytes % 14.8 H Eosinophils % 2.3 Basophils % 0.2 Nucleated Red Blood Cells % 0.3 H Neutrophils # 11.6 H Lymphocytes # 2.1 Monocytes # 2.4 H Eosinophils # 0.4 Basophils # 0.0 Nucleated Red Blood Cells # 0.1 H Sodium Level 140 Potassium Level 4.0 Chloride Level 102 Carbon Dioxide Level 29 Anion Gap 13 Blood Urea Nitrogen 13 Creatinine 0.75 Glucose Level 102 Calcium Level 9.3 Phosphorus Level 4.2 Magnesium Level 1.8 Medications Medications Current Medications Ondansetron HCl (Zofran Inj) 4 mg Q6H PRN IV NAUSEA AND/OR VOMITING; Start at 02:00 Acetaminophen (Tylenol Tab) 650 mg Q6H PRN PO PAIN LEVEL 1-3 OR FEVER Last administered on 06/21/17 18:21; Admin Dose 650 MG; Start 06/19/17 at 02:00 Enoxaparin Sodium 40 mg 40 mg DAILY SC Last administered on 06/23/17 09:56; Admin Dose 40 MG; Start 06/19/17 at 09:00 Sodium Chloride (NS) 1,000 ml @ 100 mls/hr Q10H IV Last administered on 00:38; Admin Dose 100 MLS/HR; Start 06/19/17 at 05:00 Hydromorphone HCl (Dilaudid) 2 mg Q3H PRN IV PAIN Last administered on 09:33; Admin Dose 2 MG; Start 06/20/17 at 15:00 DELLA MEDINA Jun 23, 2017 11:23
[2017-06-23 14:00] VITALS: BP 118/57; RESP 18
[2017-06-23 20:00] VITALS: BP 149/75; PULSE 72; RESP 18
[2017-06-23] MEDS: NICOTINE (21 MG/24 HR) PATCH TRANSDERM SCH (21:31)
[2017-06-24] MEDS: HYDROmorphONE 2 MG/ML SYG IV PRN ×4 (00:21→09:35)
[2017-06-24] MEDS: SOD CHLORIDE 0.9% 1,000 ML IV SCH (04:07)
[2017-06-24 07:31] VITALS: BP 106/58; RESP 16
[2017-06-24] MEDS: ENOXAPARIN 40 MG/0.4 ML SYG SC SCH (09:00)
[2017-06-24] MEDS: NICOTINE (21 MG/24 HR) PATCH TRANSDERM SCH (09:35)
--- NOTE | 2017-06-24 11:54 | DS ---
Date/Time of Note Date/Time of Note DATE: 06/24/17 TIME: 11:50 Discharge Summary Admission/Discharge Info Admit Date/Time Jun 19, 2017 at 07:03 Discharge Date/Time Jun 24, 2017 at 10:30 Discharge Diagnosis 1. Sickle cell crisis Status post fluids and Dilaudid Patient told that he needs to follow-up with mercury purifier Patient eloped prior to being discharged Patient Condition: Good Hospital Course She is a 26-year-old male with a history of sickle cell disease who presented with left leg pain as well as chest pain. Patient has had prior hospitalizations for sickle cell crisis. 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 Patient also had evidence of a possible left renal infarct and had bilateral humeral head AVN and probable early sickle cell changes of the spine. Patient did require several days of IV fluids and Dilaudid and was told that he needs follow-up with mercury purifier upon DC. Patient ultimately eloped evaluate he was told that he will be discharged, on the day patient eloped he no longer had any significant chest pain his vitals labs were stable as well as physical exam. Primary Care Provider Care Physician DELLA Simmons Jun 24, 2017 11:54
== END 2017-06-24 10:30 | disposition left against medical advice (07) | DRG 812 ==
LOC: E/R 20:23 → MS2 06-19 00:42 → OBSVTOIN 06-19 07:03 → TEL 06-19 08:50 → MS2 06-21 17:20
PROVIDERS: ADMIT Family Medicine; ATTEND Family Medicine
DX: D57.00 Hb-SS disease with crisis, unspecified (principal); F17.200 Nicotine dependence, unspecified, uncomplicated
CPT/HCPCS: 71010; 71275; 80048; 80053; 80061; 82550; 82553; 83010; 83036; 83615; 83735; 83880; 84100; 84443; 84484; 85025; 85045; 85660; 87040; 93970; 96374; 96375; 96376; G0378; J1170; J1650; J2060; J2270; J2543; J3010; J7030; Q9967